=== PATIENT | male | born 1930 | race Caucasian/White ===

== ENCOUNTER → 2017-01-25 | Day surgery (SDC) | payer OTHER ==
--- NOTE | 2017-01-23 13:29 | NUR ---
LABS AND TESTS SENT TO [facility] FOR REVIEW, [facility] FOR SURGERY 01-25-[address] Byron OZUNA.
[~2017-01-25] VITALS: Ht 175.3 cm; Wt 71.2 kg
[~2017-01-25] MED LIST: HYDROCHLOROTH12.5 MG PO; MAC100 PO; ZES20 PO
[2017-01-25 07:46] VITALS: BP 115/68
[2017-01-25 12:34] VITALS: BP 138/74
== END | disposition home or self-care (01) ==
LOC: DS 07:00 → OR 09:30
PROVIDERS: Ophthalmology
PROC: 08RK3JZ Replacement of Left Lens with Synthetic Substitute, Percutaneous Approach (ICD-10-PCS; principal; 2017-01-25 08:30)
DX: H25.012 Cortical age-related cataract, left eye (principal); I10 Essential (primary) hypertension; D64.9 Anemia, unspecified
CPT/HCPCS: C1780; J2001; J3010; J3490